=== PATIENT | female | born 2000 | race Two or more races ===

== ENCOUNTER 2019-05-18 06:06 | Emergency (ER) | payer SELFPAY ==
[2019-05-18] MEDS ORDERED: PROMETHAZINE HCL 25 MG TABLET PO ONE (06:49)
[2019-05-18] MEDS ORDERED: OXYCODONE-ACETAMINOPHEN 5-325 MG TABLET PO ONE (06:49)
[2019-05-18] MEDS ORDERED: LIDOCAINE 1% INJ-PF (10 MG/ML) 30 ML SDV INJ ONE (06:49)
--- NOTE | 2019-05-18 06:51 | ER Document Report ---
ED Medical Screen (RME) - General Chief Complaint: Low Back Pain Stated Complaint: LOWER BACK PAIN Time Seen by Provider: 05/18/19 06:42 Notes: 18-year-old female with chief complaint of tender, red, inflamed location at the upper aspect of the gluteal cleft. She states that she thinks this started after she fell and she wonders if she injured the area. She denies drainage from the area. She denies history of the same. TRAVEL OUTSIDE OF THE [place] IN LAST 30 DAYS: No - Related Data Home Medications: ibuprofen prn. naproxen prn Past Medical History - Social History Chew tobacco use (# tins/day): No Frequency of alcohol use: None Drug Abuse: None Physical Exam - Vital signs Vitals: Temp Pulse Resp BP Pulse Ox 97.9 F 106 H 18 85/61 L 99 05/18/19 06:32 05/18/19 06:32 05/18/19 06:32 05/18/19 06:32 05/18/19 06:32 - Skin Location of irregularity: Other - Upper aspect of the gluteal cleft showing a tender, erythematous, indurated, fluctuant area consistent with a pilonidal cyst abscess. Exam performed with Minerva HUFF at bedside. Course - Re-evaluation Re-evalutation: Patient initially triaged yellow because she was listed as being hypotensive in the 80s, however this was performed through her large sweatshirt, sweatshirt was removed by me and I rechecked this at bedside, systolic was 126. Patient is able to stand without dizziness. No fever. Triage level changed from 2 to 3. Evaluation consistent with pilonidal cyst abscess that will require drainage. I have greeted and performed a rapid initial assessment of this patient. A comprehensive ED assessment and evaluation of the patient, analysis of test results and completion of the medical decision making process will be conducted by additional ED providers. - Vital Signs Vital signs: Temp Pulse Resp BP Pulse Ox 97.9 F 106 H 18 126/74 H 99 05/18/19 06:32 05/18/19 06:32 05/18/19 06:32 05/18/19 06:48 05/18/19 06:32
--- NOTE | 2019-05-18 07:48 | ER Document Report ---
HPI - HPI Time Seen by Provider: 05/18/19 06:42 Pain Level: 5 Context: Patient is a 18-year-old female that comes to the Emergency Department with chief complaint of a tender, red, inflamed location at the upper aspect of the gluteal cleft worse on the left. She states that she thinks this started after she fell and she wonders if she injured the area. She denies drainage from the area. The area has been worsening for over a week. She denies a locations of pain, numbness, incontinence, fever. She denies history of the same. LMP within the past month, takes oral control, denies medical history otherwise. - REPRODUCTIVE LMP: contro1 Reproductive: DENIES: : Past Medical History - General Information source: Patient - Social History Smoking Status: Current Every Day Smoker Chew tobacco use (# tins/day): No Frequency of alcohol use: None Drug Abuse: None Lives with: Family Family History: Reviewed & Not Pertinent Patient has suicidal ideation: No Patient has homicidal ideation: No Surgical Hx: Negative - Immunizations Immunizations up to date: Yes Hx Diphtheria, Pertussis, Tetanus Vaccination: Yes Vertical Provider Document - CONSTITUTIONAL General Appearance: Other - Patient sits uncomfortably but has no difficulty standing or lying on her side. No distress - INFECTION CONTROL TRAVEL OUTSIDE OF THE [place] IN LAST 30 DAYS: No - HEENT HEENT: Atraumatic, Normal ENT Exam, Normocephalic - RESPIRATORY Respiratory: Breath Sounds Normal, No Respiratory Distress - CARDIOVASCULAR Cardiovascular: Regular Rate, Regular Rhythm. negative: Tachycardia - GI/ABDOMEN Gastrointestinal: Abdomen Soft, Abdomen Non-Tender. negative: Abdomen Tender - BACK Back: Normal Inspection - MUSCULOSKELETAL/EXTREMETIES Musculoskeletal/Extremeties: MAEW, FROM, Non-Tender - NEURO Level of Consciousness: Awake, Alert, Appropriate Motor/Sensory: No Motor Deficit, No Sensory Deficit - DERM Integumentary: Abscess - Upper aspect of the gluteal cleft on the left showing a tender, erythematous, indurated, fluctuant area consistent with a pilonidal cyst abscess. Exam performed with Minerva HUFF at bedside. Course - Re-evaluation Re-evalutation: Patient initially triaged yellow because she was listed as being hypotensive in the 80s, however this was performed through her large sweatshirt, sweatshirt was removed by me and I rechecked this at bedside, systolic was 126. Patient is able to stand without dizziness. No fever. Triage level changed from 2 to 3. Evaluation consistent with pilonidal cyst abscess that will require drainage. Upon the abscess drainage was performed with very large amount of purulent drainage, excellent results. No other concerning findings. Discussed care, follow-up, return precautions at length with patient. She states understanding and agreement. Stable at time of discharge. - Vital Signs Vital signs: Temp Pulse Resp BP Pulse Ox 97.9 F 106 H 18 126/74 H 99 05/18/19 06:32 05/18/19 06:32 05/18/19 06:32 05/18/19 06:48 05/18/19 06:32 Procedures - Incision and Drainage Pilonidal abscess Type: Single Anesthetic type: 1% Lidocaine mL's of anesthetic: 8 Blade size: 11 I&D procedure: Shurclens applied, Iodoform packing placed, Sterile dressing applied Incision Method: Incision made by scalpel Amount/type of drainage: about 25 cc of purulent drainage Discharge - Discharge Clinical Impression: Pilonidal cyst with abscess Condition: Stable Disposition: HOME, SELF-CARE Additional Instructions: Your evaluation showed a pilonidal cyst abscess, this was drained and packed. Take the packing out in 2 days, if desired you can return and have the packing removed by us. Keep very clean, clean with soap and water, avoid soaking. Take antibiotics as prescribed, take pain medication if needed. This should resolve with time. This can recur once it has happened, if it does consider follow-up with the surgical clinic referral listed. Return for any other concerning or worsening symptoms including spreading redness, increased pain, fever, or any other concerning or worsening symptoms. Prescriptions: Sulfamethoxazole/Trimethoprim [Bactrim Ds Tablet] 1 each PO BID #14 tablet Hydrocodone/Acetaminophen [[place] 5-325 mg Tablet] 1 - 2 tab PO ASDIR PRN #10 tablet PRN Reason: Forms: Return to Work Referrals: [facility] [Provider Group] - Follow up as needed
[2019-05-18 08:31] VITALS: BP 105/60
== END 2019-05-18 07:59 | disposition home or self-care (01) ==
LOC: ER 06:06
DX: L05.01 Pilonidal cyst with abscess (principal); F17.200 Nicotine dependence, unspecified, uncomplicated
CPT/HCPCS: 10080; A6266; J3490; 99283